=== PATIENT | male | born 1995 | race Caucasian/White ===

== ENCOUNTER 2023-07-19 01:00 | Emergency (ER) | payer OTHER, SELFPAY ==
[2023-07-19 01:01] VITALS: BP 173/118; PULSE 137; RESP 22; TEMP 36.7; O2SAT 97; BMI 22.9
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
[2023-07-19 01:24] LABS: Basophils # 0.1 10^3/uL (0.0-0.1); Basophils % 1.6 %; Eosinophils # 0.4 10^3/uL (0.0-0.8); Eosinophils % 4.7 %; Hematocrit 44.9 % (37-53); Lymphocytes # 2.8 10^3/uL (0.8-4.8); Lymphocytes % 34.3 %; Mean Corpuscular HGB Conc 34.1 g/dL (30-55); Mean Corpuscular Hemoglobin 33.6 pg (27-33); Mean Corpuscular Volume 98.7 fl (82-101); Monocytes # 0.6 10^3/uL (0.2-0.9); Monocytes % 7.4 %; Neutrophils % 51.8 %; Nucleated Red Blood Cells % 0 %; Platelet Count 384 10^3/cmm (157-399); Red Blood Count 4.55 10^6/uL (3.85-5.65); Red Cell Distribution Width 11.5 % (12.1-15.1); White Blood Count 8.29 10^3/uL (3.29-11.43)
[2023-07-19] MEDS: iohexol 350 mg/mL 500 mL Btl (per mL) IV (01:28)
[2023-07-19 01:31] LABS: Add Urine Microscopic? NO; Charge for UA Resulting for Rev
[2023-07-19 01:38] LABS: Bilirubin Urine Neg (Negative); Blood Urine Neg (Negative); Glucose Urine UA Norm (Normal); Ketones Urine Negative (Negative); Leukocyte Esterase Urine Negative (Negative); Nitrate Urine Negative (Negative); Protein Urine Neg (Negative); Urine Appearance Clear (CLEAR); Urine Color Light yellow (Yellow); Urobilinogen Urine Norm (Negative); pH Urine 6 (5-7)
[2023-07-19 01:41] LABS: Albumin Level 4.9 g/dL (3.5-5.2); Alkaline Phosphatase 106 U/L (40-130); Chloride 105 mmol/L (98-107); Potassium 3.9 mmol/L (3.5-5.1); Sodium 142 mmol/L (136-145)
[2023-07-19] MEDS: sodium chloride 0.9% 1,000 ML 999 ML IV (01:48)
[2023-07-19 02:02] LABS: Alanine Aminotransferase 21 U/L (0-41); Anion Gap 17.9 (5-19); Aspartate Amino Transferase 37 U/L (0-40); Blood Urea Nitrogen 6 mg/dL (6-20); Calcium 9.3 mg/dL (8.5-10.5); Carbon Dioxide 23 mmol/L (22-29); Creatinine Clr Calc Pharmacy 142.8783; Globulin 2.9 g/dL (1.3-4.6); Glucose 110 mg/dL (65-115); Osmolality Calculated 292 mOsm/kg (285-295); Total Bilirubin 0.5 mg/dL (0.15-1.2); Total Protein 7.8 g/dL (6.6-8.7)
[2023-07-19 02:03] LABS: Alcohol Level 307 mg/dL (0-10)
[2023-07-19 02:23] VITALS: BP 163/93; PULSE 167; RESP 16; O2SAT 94
[2023-07-19] MEDS: metoprolol tartrate 1 mg/1 mL SDV 5 mL 2.5 MG IVP (03:09)
[2023-07-19 03:10] VITALS: BP 154/87; PULSE 129; RESP 16; O2SAT 100
[2023-07-19 03:33] VITALS: BP 154/87; PULSE 102; RESP 16; TEMP 36.7; O2SAT 100
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
== END 2023-07-19 03:35 | disposition home or self-care (01) ==
PROVIDERS: Emergency Provider Emergency Medicine
DX: S06.0XAA Concussion with loss of consciousness status unknown, initial encounter (principal); F10.129 Alcohol abuse with intoxication, unspecified; Y90.8 Blood alcohol level of 240 mg/100 ml or more; V59.9XXA Occupant (driver) (passenger) of pick-up truck or van injured in unspecified traffic accident, initial encounter
CPT/HCPCS: 70450; 71260; 72125; 74177; 80053; 80307; 81003; 85025; 96361; 96374; 99285; J3490; J7030; Q9967